=== PATIENT | male | born 1940 | race Caucasian/White ===

== ENCOUNTER 2021-03-25 08:22 | Day surgery (SDC) | payer MEDICARE, OTHER ==
[2021-03-25] VITALS (13 sets, daily range): BP systolic 107–135; BP diastolic 47–70
[~2021-03-25] VITALS: Ht 177.8 cm; Wt 105.2 kg
[2021-03-25] MEDS ORDERED: normal saline 1000ml 1,000 ML IV SCH (09:05)
[2021-03-25] MEDS ORDERED: fentaNYL/PF 50MCG/1 ML 2ML syringe IV ONE (09:05)
[2021-03-25] MEDS ORDERED: MIDAZolam 1mg/ml 10ml vial IV ONE (09:05)
[2021-03-25 09:43] LABS: BASOPHILS # (AUTO) 0.1 X10'3 (0-0.2); EOSINOPHILS # (AUTO) 0.1 X10'3 (0-0.9); HEMATOCRIT 47.3 % (42.0-52.0); HEMOGLOBIN 16.5 g/dl (14.0-17.9); LYMPHOCYTES # (AUTO) 1.6 X10'3 (1.1-4.8); LYMPHOCYTES % (AUTO) 19.5 % (21-51); MEAN CORPUSCULAR HGB CONC 34.8 g/dL (33.0-36.5); MEAN CORPUSCULAR VOLUME 92.2 FL (78-98); MEAN PLATELET VOLUME 8.5 FL (7.4-10.4); MONOCYTES # (AUTO) 0.7 X10'3 (0-0.9); MONOCYTES % (AUTO) 7.9 % (2-12); NEUTROPHILS # (AUTO) 5.8 X10'3 (1.8-7.7); NEUTROPHILS % (AUTO) 70.6 % (42-75); PLATELET COUNT 281 X10'3 (140-440); RED BLOOD COUNT 5.13 X10'6 (4.70-6.10); RED CELL DISTRIBUTION WIDTH 13.4 % (11.5-14.5); WHITE BLOOD COUNT 8.3 X10'3 (4.5-11.0)
[2021-03-25] MEDS ORDERED: DIGO125T2 PO (09:43)
[2021-03-25] MEDS ORDERED: METO25TA6 PO (09:43)
[2021-03-25] MEDS ORDERED: LATA2.5D14 EACHEYE (09:48)
[2021-03-25] MEDS ORDERED: RIVA15TA PO (09:48)
[2021-03-25] MEDS ORDERED: SPIR25TA5 PO (09:48)
[2021-03-25] MEDS ORDERED: ATOR40TA72 PO (09:48)
[2021-03-25] MEDS ORDERED: LOSA50TA64 PO (09:48)
[2021-03-25] MEDS ORDERED: OMEP-50 PO (09:48)
[2021-03-25] MEDS ORDERED: BRIM5DRO3 EACHEYE (09:48)
[2021-03-25] MEDS ORDERED: FURO20TA4 PO (09:48)
[2021-03-25] MEDS ORDERED: AMIO200T61 PO (09:48)
[2021-03-25] MEDS ORDERED: LEVO100T78 PO (09:49)
[2021-03-25] MEDS ORDERED: PROP10DR15 (09:50)
[2021-03-25] MEDS ORDERED: CHOL20004 PO (09:51)
[2021-03-25 09:54] LABS: ALBUMIN 4.2 G/DL (3.4-5.0); ANION GAP 10 (8-16); BLOOD UREA NITROGEN 20 MG/DL (7-18); BUN/CREATININE RATIO 14.8 (5.4-32.0); CALCIUM 9.4 MG/DL (8.5-10.1); CHLORIDE 100 MMOL/L (99-107); CREATININE 1.35 MG/DL (0.60-1.10); GLUCOSE 134 MG/DL (70-104); MAGNESIUM 2.2 MG/DL (1.5-2.4); POTASSIUM 4.4 MMOL/L (3.5-5.1); SODIUM 139 MMOL/L (135-145); TOTAL CARBON DIOXIDE 29.5 MMOL/L (24-32); eGFR 51 ML/MIN
== END 2021-03-25 13:50 | disposition home or self-care (01) ==
LOC: SSTAY O 08:22
PROVIDERS: ATTEND Internal Medicine Cardiovascular Disease
DX: I48.91 Unspecified atrial fibrillation (principal); I10 Essential (primary) hypertension; I42.0 Dilated cardiomyopathy; E78.00 Pure hypercholesterolemia, unspecified; Z95.0 Presence of cardiac pacemaker; G47.30 Sleep apnea, unspecified; N40.0 Benign prostatic hyperplasia without lower urinary tract symptoms; H40.9 Unspecified glaucoma; Z85.51 Personal history of malignant neoplasm of bladder; Z98.41 Cataract extraction status, right eye; Z98.42 Cataract extraction status, left eye; Z98.890 Other specified postprocedural states; Z87.891 Personal history of nicotine dependence; Z72.89 Other problems related to lifestyle; Z88.0 Allergy status to penicillin; Z88.8 Allergy status to other drugs, medicaments and biological substances
CPT/HCPCS: 36415; 80048; 83735; 85025; 85610; 92960; 93005; 94760; 94799; J2250; J3010; J7030